=== PATIENT | male | born 1945 | race Caucasian/White ===

== ENCOUNTER → 2020-02-09 10:00 | Outpatient (BNVA) | payer MEDICARE, SELFPAY | PROVIDERS: PCP Family Medicine; Visit Provider Nurse Practitioner Family | DX: E78.5 Hyperlipidemia, unspecified (principal) | CPT/HCPCS: 80053; 80061; 85025 ==

== ENCOUNTER → 2020-08-26 15:45 | Outpatient (BNVA) | payer MEDICARE, SELFPAY | PROVIDERS: PCP Family Medicine; Visit Provider Nurse Practitioner Family | DX: I10 Essential (primary) hypertension (principal); E78.5 Hyperlipidemia, unspecified; Z12.5 Encounter for screening for malignant neoplasm of prostate | CPT/HCPCS: 80053; 80061; 84443; 85025; G0103 ==

== ENCOUNTER → 2021-02-07 13:23 | Outpatient (BNVA) | payer MEDICARE, SELFPAY | PROVIDERS: PCP Family Medicine; Visit Provider Nurse Practitioner Family | DX: I10 Essential (primary) hypertension (principal); E78.5 Hyperlipidemia, unspecified; N40.1 Benign prostatic hyperplasia with lower urinary tract symptoms; R35.1 Nocturia; F41.9 Anxiety disorder, unspecified; F32.9 Major depressive disorder, single episode, unspecified; M51.17 Intervertebral disc disorders with radiculopathy, lumbosacral region; G47.00 Insomnia, unspecified; J30.9 Allergic rhinitis, unspecified; M71.21 Synovial cyst of popliteal space [Baker], right knee | CPT/HCPCS: 80053; 80061; 85025 ==

== ENCOUNTER → 2021-07-02 12:32 | Outpatient (BNVA) | payer MEDICARE, SELFPAY | PROVIDERS: PCP Family Medicine; Visit Provider Nurse Practitioner Family | DX: I10 Essential (primary) hypertension (principal); N40.1 Benign prostatic hyperplasia with lower urinary tract symptoms; R35.1 Nocturia; R73.9 Hyperglycemia, unspecified | CPT/HCPCS: 80053; 80061; 83036; 84443; 85025; G0103 ==

== ENCOUNTER → 2022-03-24 15:55 | Outpatient (BNVA) | payer MEDICARE, SELFPAY | PROVIDERS: PCP Family Medicine; Visit Provider Nurse Practitioner Family | DX: M16.12 Unilateral primary osteoarthritis, left hip (principal); M25.552 Pain in left hip | CPT/HCPCS: 73502 ==

== ENCOUNTER → 2022-09-25 12:09 | Outpatient (BNVA) | payer MEDICARE, SELFPAY | PROVIDERS: PCP Family Medicine; Visit Provider Nurse Practitioner Family | DX: I10 Essential (primary) hypertension (principal); Z12.5 Encounter for screening for malignant neoplasm of prostate; R73.9 Hyperglycemia, unspecified | CPT/HCPCS: 80053; 80061; 83036; 84443; 85025; G0103 ==

== ENCOUNTER → 2022-10-08 09:50 | Outpatient (BNVA) | payer MEDICARE, SELFPAY | PROVIDERS: PCP Family Medicine; Referring Provider Nurse Practitioner Family; Visit Provider Student in an Organized Health Care Education/Training Program | DX: M65.342 Trigger finger, left ring finger (principal) | CPT/HCPCS: 99204 ==

== ENCOUNTER 2022-10-27 06:25 | Day surgery (SDC) | payer MEDICARE, SELFPAY ==
[2022-10-26 15:01] VITALS: BMI 36.6
[2022-10-27] VITALS (7 sets, daily range): BP systolic 153–179; BP diastolic 67–77; PULSE 61–79; RESP 12–18; TEMP 36.4–36.8; O2SAT 96–100
[2022-10-27] MEDS: acetaminophen 1,000 MG/100 ML PIGGYBACK 400 MG IV (07:00)
--- NOTE | 2022-10-27 07:00 | W.PM.OPSUD ---
Surgery/Procedure H&P Update DATE OF PROCEDURE: October 27, 2022 DATE H&P PERFORMED: 10/08/22 CHANGES TO PREVIOUS DOCUMENTATION: None. Plan to proceed with local for left hand ring finger trigger release. All questions answered understands risk benefits complication alternatives with surgery and agrees to proceed with surgical intervention. PREOP DIAGNOSIS: Left ring finger trigger PRIMARY INDICATION FOR PROCEDURE: Left ring finger trigger PLANNED PROCEDURE: Operation Date: 10/27/22 07:50 Proposed Procedures p trigger finger release of left ring finger: 17716,M65.342(Left) - Leon Mcgee DO
[2022-10-27] MEDS: ketorolac 30 mg/mL INJ IVP (07:01)
[2022-10-27] MEDS: ceFAZolin 2,000 MG in sodium chloride 0.9% (plus) 50 ML 100 MG IV (08:10)
--- NOTE | 2022-10-27 08:19 | SUR.OPER ---
0810 Pt brought to the room, secured to OR bed , vital signs stable, pt states no pain or complaints at this time. Nurse at bedside.
--- NOTE | 2022-10-27 08:47 | SUR.OPER ---
0899 Pt taken to recovery by Renita RAY. no complaints of pain, vss, pt awake and joking with staff.
--- NOTE | 2022-10-27 08:48 | PM.OP2 ---
Brief Operative Note Date of procedure: 10/27/22 Pre-op diagnosis: Left index finger trigger Post-op diagnosis: same Procedure Done: Left index finger trigger release Surgeon: Leon Mcgee Estimated blood loss (mL): 2 Complications: None Post-op Plan: Patient taken to recovery in stable condition dressing on in place clean dry intact. Patient receive appropriate discharge structure as well as pain medication postoperatively. Patient to follow-up with me in the office in 2 weeks. All questions answered. Condition: stable Disposition: same day Coding Level of Care Code Acute Code for Cherie Mariee
--- NOTE | 2022-10-27 08:48 | PM.PACU ---
PACU note Narrative: Dressing on in place clean dry and intact patient is able to wiggle fingers fingertips warm well-perfused brisk capillary refill less than 2 seconds decree sensation secondary to local digital block of the left ring finger. Patient is able to make a fist and no mechanical triggering noted. Exam: awake Disposition: discharged
--- NOTE | 2022-10-27 08:48 | PM.OP ---
Operative Report Date of procedure: October 27, 2022 Pre-op diagnosis: Preop Diagnosis Left ring finger trigger Procedure: Post-op diagnosis: ?same Procedure done: Left ring finger trigger release Surgeon: Leon Mcgee DO Estimated blood loss: 2 mL Tourniquet time 11 minutes Anesthesia: Local Complications: None Condition: stable Disposition: same day Brief History: Patient been seen evaluate in the outpatient setting? left ring finger trigger consistent with preoperative diagnosis.?? we talked about treatment options far as nonoperative and operative intervention.? Given patient's severe mechanical triggering and disabling of his daily activity as well as pain he would like to have this taken care of more permanently with surgical intervention. At this point time through shared decision making patient would like to proceed with a left ring finger trigger release surgery. we talked about the risk benefits complication alternatives to each treatment option understanding his risk for surgery patient agrees to proceed with surgical intervention.? All questions answered.? Consent reviewed and signed with patient. Procedure: Patient presented to the preoperative holding area consent was reviewed and signed with patient.? Correct extremity/digit was then marked.? Given patient had known to drive him home his family is all gone and unavailable, he would like to proceed with local anesthesia. Plan was to perform local digital block..? Transported on the OR table in supine position all bony prominences well-padded patient was appropriate secured to bed.? Armboard was applied to the left arm.? Patient's left upper extremity was then prepped and draped in standard orthopedic fashion.? Final timeout performed.? Patient received appropriate preoperative antibiotics. Under sterile aseptic technique a local digital block was then performed for planned incision site of the left ring finger.? Esmarch tourniquet was used exsanguinate the left upper extremity.? Tourniquet was insufflated to 250 mmHg. A standard oblique incision over the left ring finger A1 shannan was made in patient's distal palmar crease sharp scalpel incision was made strictly through just skin.? I then switched to Jennier dissection scissors and dissected and spread longitudinally in the planes of the neurovascular bundle and longitudinally in line with the flexor tendon sheath.? Once soft tissue mobilized over the tendon I then placed Kasdan retractors to protect the neurovascular bundle and identified the proximal portion of the A1 shannan.? This was then incised with a sharp scalpel and then switched to dissection scissors to complete the A1 shannan release distally.? FDS and FDP tendons were intact.? I utilized a rag nail to pull the tendon through the incision site and inspected each of the FDS and FDP tendons which no evidence of tear or rupture.? As patient was wide-awake patient then actively make a fist and no evidence of triggering was noted. Patient's adjacent finger of the middle finger had a very subtle trigger that was appreciated but I talk with this with the patient being wide-awake and he states this is not giving him any issues and noticed just a couple days that this started to act like this. He like to observe how a responds with simple release of the ring finger and hoping that this improvement of his inflammation of his ring finger will additionally assist with the middle finger. He would like to hold off on any further releases which we were agreeable with this intraoperatively. This completed the procedure tourniquet was deflated hemostasis satisfactory bipolar electrocautery.? I then thoroughly irrigated the incision site and then closed the incision with interrupted nylon suture.? Incision dressed with Xeroform 4 x 4's fluffs Curlex and an Alejandro wrap.? Patient was then taken to PACU in stable condition. Disposition: Patient taken PACU in stable condition recovering well dressings on in place clean dry and intact.? Patient receive appropriate discharge structure as well as pain medication postoperatively.? Patient follow-up in the orthopedic office in 2 weeks.? Patient understands agrees with current plan.? All questions answered.
--- NOTE | 2022-10-27 14:00 | ANE.PACU2 ---
Inpatient post-anesthesia follow up: Airway intact: Yes Vital signs: Temperature 98.3 F Pulse Rate 79 Respiratory Rate 17 Blood Pressure 179/72 Pulse Oximetry 99 Oxygen Delivery Me thod Room Air Oxygen Flow Rate Fraction of Inspir ed Oxygen Hydration adequate: Yes Nausea and vomiting: No Pain level: 1 Mental status: Baseline
== END 2022-10-27 09:05 | disposition home or self-care (01) ==
PROVIDERS: PCP Family Medicine; Visit Provider Student in an Organized Health Care Education/Training Program
PROC: (CPT 26055; principal; 2022-10-27 07:40)
DX: M65.342 Trigger finger, left ring finger (principal); I10 Essential (primary) hypertension; E78.5 Hyperlipidemia, unspecified; E66.9 Obesity, unspecified; Z68.36 Body mass index [BMI] 36.0-36.9, adult; Z87.891 Personal history of nicotine dependence; Z79.899 Other long term (current) drug therapy
CPT/HCPCS: 26055; J0131; J0690; J1885; J2795; J3490

== ENCOUNTER → 2022-11-13 09:21 | Outpatient (BNVA) | payer MEDICARE, SELFPAY | PROVIDERS: PCP Family Medicine; Visit Provider Student in an Organized Health Care Education/Training Program | DX: M65.342 Trigger finger, left ring finger (principal) | CPT/HCPCS: 99024 ==

== ENCOUNTER 2022-12-18 08:42 | Outpatient (CLI) | payer MEDICARE, SELFPAY ==
--- NOTE | 2022-12-18 09:15 | US_ITS ---
WS: [id number] TESTICULAR ULTRASOUND HISTORY: N45.1 - Epididymitis COMPARISON: None available. TECHNIQUE: Real-time and color Doppler imaging or utilized to perform a testicular ultrasound. Right testicle: 4.1 cm x 3.4 cm x 3.1 cm. Normal size gland but there is mild heterogeneity and decreased echogenicity within the testicle. The re is vascularity present. The waveform is dampened. No mass identified. No increased vascularity. Doppler is present throughout the testicle. Large mildly complex hydrocele. Low level echoes are present. There is mild thickening of the scrotal wall. Right epididymis: Normal epididymis with no increased vascularity. Left testicle: 4.4 cm x 2.9 cm x 2.2 cm. Normal size and echogenicity. No mass or torsion. Normal color Doppler is present throughout. Systolic and diastolic velocities are both present. Small simple hydrocele. Left epididymis: Normal epididymis with no increased vascularity. US/US scrotum [id number] IMPRESSION: 1. Large mildly complex RIGHT hydrocele. 2. No testicular mass or torsion. 3. Mild heterogeneity throughout the RIGHT testicle. The vascularity in the RI GHT testicle is not as prominent as compared to the LEFT testicle. This may be normal variant for the patient. If patient is having intermittent or continued testicular pain intermittent torsion should be considered as a differential. 4. Mild scrotal wall thickening and lacy-like areas of echogenicity in the ant erior scrotum on the RIGHT. May be from prior resolved infection or hemorrhage. 5. No evidence for epididymitis.
== END 2022-12-18 08:43 | disposition home or self-care (01) ==
LOC: RAD 08:44
PROVIDERS: PCP Family Medicine; Visit Provider Nurse Practitioner Family
DX: N45.1 Epididymitis (principal)
CPT/HCPCS: 76870

== ENCOUNTER → 2023-09-28 17:03 | Outpatient (BNVA) | payer MEDICARE, SELFPAY | PROVIDERS: PCP Nurse Practitioner Family; Visit Provider Nurse Practitioner Family | DX: Z12.5 Encounter for screening for malignant neoplasm of prostate (principal); I10 Essential (primary) hypertension | CPT/HCPCS: 80053; 80061; 83036; 84443; 85025; G0103 ==

== ENCOUNTER 2023-11-19 09:50 | Outpatient (CLI) | payer MEDICARE, SELFPAY ==
--- NOTE | 2023-11-19 09:54 | CTR_ITS ---
PROCEDURE INFORMATION: Exam: CT Abdomen And Pelvis Without And With Contrast Exam date and time: 11/19/2023 10:21 AM Age: 78 years old Clinical indication: Condition or disease; Other: Right hydrocle, hernia inguinal right; Prior surgery; Surgery date: 6+ months; Surgery type: Spine, appy, hernia TECHNIQUE: Imaging protocol: Computed tomography of the abdomen and pelvis without and with contrast. Radiation optimization: All CT scans at this facility use at least one of these dose optimization techniques: automated exposure control; mA and/or kV adjustment per patient size (includes targeted exams where dose is matched to clinical indication); or iterative reconstruction. Contrast material: OMNI 350; Contrast volume: 95 ml; Contrast route: INTRAVENOUS (IV); COMPARISON: CT abdomen pelvis wo con [id number] 04/19/2018 9:45 AM RADIATION DOSE METRICS: Total DLP (mGy-cm): 1572.63 FINDINGS: Liver: No focal hepatic lesion. Gallbladder and bile ducts: Grossly unremarkable. No evidence of inflammatory changes. No biliary dilatation. Pancreas: Grossly unremarkable. Spleen: Grossly unremarkable. Adrenal glands: Grossly unremarkable. Kidneys and ureters: No evidence of renal parenchymal abnormality. No hydronephrosis or ureteral stone. Stomach and bowel: Few scattered colonic diverticula without evidence of acute diverticulitis. No evidence of bowel obstruction or perienteric inflammatory changes. Appendix: Prior appendectomy. Intraperitoneal space: No evidence of free air or fluid collection. Vasculature: No aneurysmal dilatation or dissection of the abdominal aorta. The celiac trunk, SMA and SHAYY are grossly patent. No evidence of IVC thrombus. 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 The portal vein, SMV and splenic veins are grossly patent. Lymph nodes: No adenopathy. Urinary bladder: Grossly unremarkable. Reproductive: Moderate-large right-sided and trace left-sided hydroceles. Multiple dilated pelvic vessels. Bones/joints: No evidence of acute fracture or aggressive osseous lesion. L4 through S1 posterior instrumented fusion/decompression with transpedicular screws at all 3 levels on the left and L4/S1 on the right. L3-L4 posterior disc osteophyte complex and ligamentum hypertrophy results in severe central stenosis with suspected cauda equina impingement. Moderate-severe left-sided foraminal stenosis at this level as well. There is deformity of the posterior left iliac bone, possibly posttraumatic. Soft tissues: No evidence of fluid collection or hematoma in the superficial soft tissues. Mild laxity of the right lower quadrant ventral abdominal wall with a 1.3 cm outpouching of fat (image 51 of series 13). CT/CT abdomen pelvis wo/w [id number] IMPRESSION: 1. No evidence of acute abnormality in the abdomen or pelvis. 2. Moderate-large right-sided and trace left-sided hydroceles. 3. 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 Consider follow-up outpatient vascular evaluation. 4. 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 Consider correlation with follow-up outpatient MRI or CT myelogram to evaluate for neural impingement. 5. Mild laxity of the right lower quadrant ventral abdominal wall with a 1.3 cm outpouching of fat.
[2023-11-19] MEDS: iohexol 350 mg/mL 500 mL Btl (per mL) IV (10:27)
== END 2023-11-19 09:51 | disposition home or self-care (01) ==
LOC: RAD 09:51
PROVIDERS: PCP Nurse Practitioner Family; Visit Provider Nurse Practitioner Family
DX: N43.3 Hydrocele, unspecified (principal); I87.8 Other specified disorders of veins; M48.061 Spinal stenosis, lumbar region without neurogenic claudication; L57.4 Cutis laxa senilis; K57.90 Diverticulosis of intestine, part unspecified, without perforation or abscess without bleeding; M43.27 Fusion of spine, lumbosacral region; M25.78 Osteophyte, vertebrae; M89.8X8 Other specified disorders of bone, other site; Z98.890 Other specified postprocedural states
CPT/HCPCS: 74178; Q9967

== ENCOUNTER → 2024-01-18 14:11 | Outpatient (BNVA) | payer MEDICARE, SELFPAY | PROVIDERS: PCP Nurse Practitioner Family; Visit Provider Nurse Practitioner Family | DX: I10 Essential (primary) hypertension (principal); Z79.899 Other long term (current) drug therapy | CPT/HCPCS: 80053; 80061; 81000; 81003; 82607; 84443; 85025 ==

== ENCOUNTER → 2024-07-11 09:37 | Outpatient (BNVA) | payer MEDICARE, SELFPAY | PROVIDERS: PCP Nurse Practitioner Family; Visit Provider Nurse Practitioner Family | DX: M25.561 Pain in right knee (principal); I10 Essential (primary) hypertension; R73.9 Hyperglycemia, unspecified; E78.5 Hyperlipidemia, unspecified; M17.9 Osteoarthritis of knee, unspecified | CPT/HCPCS: 73562; 80053; 80061; 83036; 84443; 85025 ==

== ENCOUNTER 2024-07-26 11:20 | Outpatient (CLI) | payer MEDICARE, SELFPAY ==
--- NOTE | 2024-07-26 11:45 | MR_ITS ---
WS: [id number] MRI RIGHT KNEE HISTORY: M25.561 - Pain in right knee COMPARISON: RIGHT knee radiographs 07/11/2024 Anterior cruciate ligament: Extensive intermediate signal throughout the ACL. Majority of the ACL fib ers are intact although intermediate signal throughout. Posterior cruciate ligament: Intact. Medial collateral ligament: Mild sprain of the medial collateral ligament. There is fluid surrounding the ligament and central increased T2 signal at the level of the knee joint. No full-thickness tear. Posterior lateral corner structures: Intact. Small fluid collection along the popliteus tendon most c onsistent with bursitis. Medial menisci: Complex tear posterior horn. Abnormal signal throughout the the entire posterior horn including the meniscal root and the free edge. Marked blunting of the free edge. Extruded meniscus i n the medial compartment. Additional tear involving the free edge of the anterior horn. Lateral meniscus: Intrasubstance degeneration in the anterior horn. Extensor mechanism: Distal quadriceps tendon and patellar tendons are intact. Fluid and soft tissue: Moderate size suprapatellar joint effusion. There is extensive soft tissue curtis ma surrounding the knee. Multiloculated moderate-sized Lopez's cyst. Osseous and articular structures: Patellofemoral compartment: Lateral subluxation of the patella. Focal chondromalacia at the patellar eminence with mild chondromalacia along the lateral patellar facet. Medial compartment: Severe narrowing of the medial compartment with near complete loss of cartilage. Marginal osteophytes with minimal edema in the femoral condyle along the weightbearing surface. Lateral compartment: Moderate narrowing of the lateral compartment with mild diffuse fissuring of the cartilage and thinning. Small marginal osteophytes. No fractures. Infrapatellar fat pad edema. Intermediate signal extending towards the intercondylar notch associated with the posterior cruciate ligament. Suspect this may be meniscal fragment that is extended into the condylar from the complex t ear posterior horn medial meniscus. MR/MR knee RT wo con* [id number] IMPRESSION: 1. Complex tear posterior horn medial meniscus. Abnormal signal throughout the meniscus and abnormal shape. Intermediate signal extends towards the intercond ylar notch. Favor meniscal fragment in the intercondylar notch. 2. Free edge tear involving anterior horn medial meniscus. 3. Extensive mucoid degeneration involving the ACL. 4. Mild MCL sprain. 5. Popliteus tendon bursitis. 6. Moderate size joint effusion. 7. Multiloculated Lopez's cyst. 8. Mild lateral subluxation of the patella. Focal chondromalacia involving the patellar eminence. 9. Severe medial compartment narrowing with near complete loss of cartilage. 10. Moderate narrowing lateral compartment with mild thinning of the cartilage .
== END 2024-07-26 11:21 | disposition home or self-care (01) ==
LOC: RAD 11:25
PROVIDERS: PCP Nurse Practitioner Family; Visit Provider Nurse Practitioner Family
DX: S83.241A Other tear of medial meniscus, current injury, right knee, initial encounter (principal); S83.011A Lateral subluxation of right patella, initial encounter; S83.411A Sprain of medial collateral ligament of right knee, initial encounter; X58.XXXA Exposure to other specified factors, initial encounter; R93.6 Abnormal findings on diagnostic imaging of limbs; M25.461 Effusion, right knee; M71.21 Synovial cyst of popliteal space [Baker], right knee; M94.261 Chondromalacia, right knee; M25.761 Osteophyte, right knee
CPT/HCPCS: 73721